=== PATIENT | male | born 1975 | race Two or more races ===

== ENCOUNTER 2019-11-19 05:53 | Emergency (ER) | payer OTHER ==
[~2019-11-19] VITALS: Ht 175.3 cm; Wt 138.8 kg
[2019-11-19] MEDS ORDERED: IBU800 MG PO (07:18)
== END 2019-11-19 08:22 | disposition home or self-care (01) ==
LOC: ER 05:53
DX: S93.492A Sprain of other ligament of left ankle, initial encounter (principal); X50.0XXA Overexertion from strenuous movement or load, initial encounter; Y93.89 Activity, other specified; Y92.048 Other place in boarding-house as the place of occurrence of the external cause; Y99.8 Other external cause status